=== PATIENT | female | born 1975 | race Caucasian/White ===

== ENCOUNTER 2017-01-10 08:03 | Emergency (ER) | payer MEDICAID ==
[2017-01-10 08:11] VITALS: BP 122/85
[2017-01-10] MEDS ORDERED: oxyCOD/ACETAMIN 5 MG/325 MG TABLET PO STA (08:28)
[2017-01-10] MEDS ORDERED: CYCLOBENZAPRINE 10 MG TABLET PO STA (08:28)
[2017-01-10] MEDS ORDERED: LIDOCAINE PATCH 5% TOP STA (08:28)
--- NOTE | 2017-01-10 08:33 | ED Physician Documentation ---
History of Present Illness - Stated complaint Stated Complaint: BACK PX - Chief complaint Chief Complaint: Back Pain - Additonal information Additional information: hx from pt 41 f hx degen back disease no prior back surgery bent to catch something yesterday and had acute exacerbation of chronic pain pain across low back no rad to legs no saddle anesthesia or any other numbness no weakness no oncont no fever or abd pain no recent dental work surgery IV meds/drugs denies preg took motrin [employer] s relief Review of Systems Constitutional: denies: Fever, Chills Cardiac: denies: Chest pain / pressure Respiratory: denies: Dyspnea GI: denies: Abdominal Pain, Nausea, Vomiting : denies: Incontinent, Now EGA Musculoskeletal: reports: Back pain Endocrine: denies: Easy bruising / bleeding Immunocompromised: denies: Immunocompromised PD PAST MEDICAL HISTORY - Past Medical History Past Medical History: Yes Cardiovascular: Arrhythmia Neuro: Head injury Psych: Anxiety Musculoskeletal: Chronic back pain - Past Surgical History Past Surgical History: Yes General: Other /[employer]: Tubal ligation - Present Medications Home Medications: Ambulatory Orders Medication Instructions Recorded Confirmed Escitalopram Oxalate [Lexapro] 0 mg PO DAILY 02/26/16 01/10/17 Valacyclovir HCl [Valacyclovir] 1,000 mg PO DAILY 02/26/16 01/10/17 Albuterol Sulfate [Proventil Hfa 1 - 2 puffs INH Q4H PRN #1 inhaler 03/21/16 Inhaler] Cyclobenzaprine [Flexeril] 10 mg PO Q6HR PRN 05/25/16 01/10/17 Gabapentin [Neurontin] 100 mg PO ONCE #90 capsule 05/25/16 01/10/17 Meloxicam [Mobic] 7.5 mg PO DAILY #20 tablet 05/25/16 01/10/17 Methocarbamol [Robaxin] 1,000 mg PO Q8HR #30 tablet 05/25/16 01/10/17 raNITIdine [Zantac] 150 mg PO DAILY #30 tablet 05/25/16 01/10/17 Carisoprodol [Soma] 350 mg PO Q8H PRN #15 tablet 01/10/17 Ibuprofen [Motrin] 400 mg PO Q6H PRN #30 tablet 01/10/17 Lidocaine Patch 5% [Lidoderm Patch] 1 each TOP DAILY PRN #10 patch 01/10/17 traMADol [Ultram] 50 mg PO Q6H PRN #10 tablet 01/10/17 - Allergies Allergies/Adverse Reactions: Allergies Allergy/AdvReac Type Severity Reaction Status Date / Time codeine Allergy Nausea Verified 03/21/16 19:13 - Social History Does the pt smoke?: No Smoking Status: Never smoker Does the pt drink ETOH?: Yes Does the pt have substance abuse?: No - Immunizations Immunizations are current?: Yes Immunizations: TDAP >10years/unknown - POLST Patient has POLST: No PD ED PE NORMAL - Vitals Vital signs reviewed: Yes - Cardiac Cardiac: RRR - Respiratory Respiratory: No respiratory distress, Clear bilaterally - Abdomen Abdomen: Soft, Non tender - Derm Derm: Normal color - Neuro Neuro: Alert and oriented X 3, No motor deficit, No sensory deficit, Other (no saddle anesthesia, hip flex knee ext foot dorsi plantar and great toe ext all 5/ 5m nl sensation, no clons, neg SLR shara, patellar DTR 2+/4 shara) Results - Vitals Vitals: Vital Signs - 24 hr 01/10/17 08:08 Temperature 36.8 C Heart Rate 69 Respiratory 22 Rate Blood Pressure 122/85 H O2 Saturation 99 Oxygen O2 Source Room air PD MEDICAL DECISION MAKING - ED course ED course: acute exac chronic back pain no red flags nl neuro exam pt has ALE most rx are lyrica, had hydrocodone # 60 in Jul and again September, uses same provider med list states flexeril and robaxin but pt states she is not taking either of those at this time - is out Departure - Departure Disposition: Home, Self Care Clinical Impression: Low back pain Qualifiers: Chronicity: acute Back pain laterality: unspecified Sciatica presence: without sciatica Qualified Code(s): M54.5 - Low back pain Condition: Good Instructions: ED Low Back Pain Injury Follow-Up: Alonzo Huynh MD [Primary Care Provider] - (for a recheck later this week) Prescriptions: Lidocaine Patch 5% [Lidoderm Patch] 1 each TOP DAILY PRN #10 patch PRN Reason: Pain Ibuprofen [Motrin] 400 mg PO Q6H PRN #30 tablet PRN Reason: Pain Carisoprodol [Soma] 350 mg PO Q8H PRN #15 tablet PRN Reason: muscle spasm traMADol [Ultram] 50 mg PO Q6H PRN #10 tablet PRN Reason: Severe Pain Forms: Activity restrictions Discharge Date/Time: 01/10/17 09:55
[2017-01-10] MEDS ORDERED: oxyCOD/ACETAMIN 5 MG/325 MG TABLET PO ONE (08:37)
[2017-01-10] MEDS ORDERED: LIDOCAINE PATCH 5% TOP ONE (08:38)
[2017-01-10] MEDS ORDERED: CYCLOBENZAPRINE 10 MG TABLET PO ONE (08:38)
[2017-01-10] MEDS ORDERED: KETOROLAC 60 MG/2 ML VIAL IM STA (09:13)
[2017-01-10] MEDS ORDERED: KETOROLAC 60 MG/2 ML VIAL ONE (09:21)
== END 2017-01-10 09:55 | disposition home or self-care (01) ==
LOC: ED 08:03
DX: M54.5 Low back pain (principal); G89.29 Other chronic pain; I49.9 Cardiac arrhythmia, unspecified
CPT/HCPCS: 96372; 99283; A9270